=== PATIENT | female | born 1980 | race Caucasian/White ===

== ENCOUNTER 2016-03-24 11:52 | Emergency (ER) | payer OTHER ==
[2016-03-24 12:24] LABS: COLOR ORANGE; PH,URINE 6.5 (5.0-7.5)
[2016-03-24 12:32] LABS: BACTERIA TRACE /hpf (NONE SEEN); MUCUS 2+ /lpf (NONE-1+); WBC,URINE 25-50 /hpf (0-3)
[2016-03-24 12:33] VITALS: BP 133/81; PULSE 86; RESP 16; TEMP 98.1; O2SAT 97
--- NOTE | 2016-03-24 13:06 | UCPHY ---
H & P Time Seen by Provider: 03/24/16 12:56 Patient Type: Established HPI/ROS: This patient presents with a chief complaint of frequency, urgency and dysuria which began 3 days ago. She denies flank pain or fever. She does admit to some lower abdominal cramping which radiates into her back. She does admit to some nausea without vomiting or diarrhea. Her last UTI was 4 months ago. She has been keeping herself well hydrated and then using azo over the counter. Smoking Status: Never smoked Physical Exam: This is a well-developed well-nourished female who is in no acute distress. She is alert, lucid and appropriate. Abdomen: There is mild suprapubic tenderness without guarding or rebound. There is no organomegaly. Back: There is no CVA tenderness. Constitutional: Initial Vital Signs Temperature (C) 36.7 C 03/24/16 12:28 Heart Rate 86 03/24/16 12:28 Respiratory Rate 16 03/24/16 12:28 Blood Pressure 133/81 H 03/24/16 12:28 O2 Sat (%) 97 03/24/16 12:28 O2 Delivery Mode Room Air Allergies/Adverse Reactions: No Known Allergies Allergy (Verified 03/24/16 12:27) Home Medications: Medication Instructions Recorded Effexor 05/10/14 Levothyroxine 05/10/14 Liothyronine Sodium 05/10/14 TOPIRAMATE 04/15/15 Nitrofurantoin Macrobid [Macrobid] 100 mg PO BID #14 cap 03/24/16 Medical Decision Making Differential Diagnosis: I believe that this patient has an uncomplicated UTI and a culture is not necessary. There is nothing to suggest acute pyelonephritis. - Data Points Laboratory Results: 03/24/16 12:20 Urine Color ORANGE Urine Appearance HAZY Urine pH 6.5 (5.0-7.5) Ur Specific [place] 1.020 (1.002-1.030) Urine Protein 3+ H (NEGATIVE) Urine Ketones 1+ H (NEGATIVE) Urine Blood NEGATIVE (NEGATIVE) Urine Nitrate TNP Urine Bilirubin TNP Urine Urobilinogen TNP Ur Leukocyte Esterase TNP Urine RBC 3-5 H /hpf (0-3) Urine WBC 25-50 H /hpf (0-3) Ur Epithelial Cells 1+ /lpf (NONE-1+) Urine Bacteria TRACE H /hpf (NONE SEEN) Urine Mucus 2+ H /lpf (NONE-1+) Urine Glucose 1+ H (NEGATIVE) Departure - Departure Disposition: Home, Routine, Self-Care Clinical Impression: Urinary tract infection Qualifiers: Urinary tract infection type: acute cystitis Hematuria presence: without hematuria Qualifier Code: (N30.00) Acute cystitis without hematuria Condition: Good Instructions: Urinary Tract Infection in Women (ED) Additional Instructions: If your symptoms have not resolved in 2 days you should be re-evaluated. Keep herself well hydrated and continue to use cranberry juice and the azo. Cause for concern would be vomiting, fever or flank pain. Referrals: Rosemarie Garzon MD [Primary Care Provider] - As per Instructions Prescriptions: Nitrofurantoin Macrobid [Macrobid] 100 mg PO BID #14 cap - PQRS PQRS Measurement: Not applicable
== END 2016-03-24 13:18 | disposition home or self-care (01) ==
LOC: CED 11:52
DX: N30.00 Acute cystitis without hematuria (principal)
CPT/HCPCS: 81003-PO; 81015-PO; 99214-PO; G0463-PO

== ENCOUNTER 2016-07-27 12:02 | Emergency (ER) | payer OTHER ==
[2016-07-27 12:19] VITALS: RESP 18; TEMP 98
[2016-07-27] MEDS ORDERED: NS 1,000 ML IV ONE (12:26)
[2016-07-27] MEDS ORDERED: HYDROmorphONE/DILAUDID 1 MG/ML SYR IVP ONE (12:26)
[2016-07-27] MEDS ORDERED: ONDANSETRON 4 MG/2 ML VIAL IVP ONE (12:26)
--- NOTE | 2016-07-27 12:29 | EDPHY ---
H & P Stated Complaint: RLQ pain x 2 wks inc. over last few days Time Seen by Provider: 07/27/16 12:22 HPI/ROS: CHIEF COMPLAINT: Right lower quadrant pain HISTORY OF PRESENT ILLNESS: Patient is a 35-year-old female who comes from the load tallier office for right lower quadrant pain and tenderness. The patient states that her pain began about a week ago just to the right of her umbilicus. It has been mild and seem to be worse after eating. Will last 2 days however it has become more severe and was tender when palpated by the GI practitioner. She also has pain with heel tap. She has not had a fever. She had a mild sore throat yesterday but improved. She states that she has had ovarian cysts in the past that felt similar. She has not had any vaginal bleeding or discharge. No urinary symptoms. She does have mild nausea but no vomiting. REVIEW OF SYSTEMS: Constitutional: denies: chills, fever, recent illness, recent injury EENTM: denies: blurred vision, double vision, nose congestion Respiratory: denies: cough, shortness of breath Cardiac: denies: chest pain, irregular heart rate, lightheadedness, palpitations Gastrointestinal/Abdominal: See HPI denies: diarrhea, vomiting, blood streaked stools Genitourinary: denies: dysuria, frequency, hematuria, pain Musculoskeletal: denies: joint pain, muscle pain Skin: denies: lesions, rash, jaundice, bruising Neurological: denies: headache, numbness, paresthesia, tingling, dizziness, weakness Hematologic/Lymphatic: denies: blood clots, easy bleeding, easy bruising Immunologic/allergic: denies: HIV/AIDS, transplant EXAM: GENERAL: Well-appearing, well-nourished and in no acute distress. HEAD: Atraumatic, normocephalic. EYES: Pupils equal round and reactive to light, extraocular movements intact, sclera anicteric, conjunctiva are normal. ENT: TMs normal, nares patent, oropharynx clear without exudates. Moist mucous membranes. NECK: Normal range of motion, supple without lymphadenopathy or JVD. LUNGS: Breath sounds clear to auscultation bilaterally and equal. No wheezes rales or rhonchi. HEART: Regular rate and rhythm without murmurs, rubs or gallops. ABDOMEN: White lower quadrant tenderness to palpation, pain with heel tap. BACK: No CVA tenderness, no spinal tenderness, step-offs or deformities EXTREMITIES: Normal range of motion, no pitting or edema. No clubbing or cyanosis. NEUROLOGICAL: Cranial nerves II through XII grossly intact. Normal speech, normal gait. 5/5 strength, normal movement in all extremities, normal sensation PSYCH: Normal mood, normal affect. SKIN: Warm, dry, normal turgor, no visible rashes or lesions. Source: Patient Exam Limitations: No limitations - Personal History LMP (Females 10-55): IUD In Place Current Tetanus Diphtheria and Acellular Pertussis (TDAP): Yes Tetanus Vaccine Date: 2010 - Medical/Surgical History Hx Asthma: Yes Hx Chronic Respiratory Disease: No Hx Diabetes: No Hx Cardiac Disease: No Hx Renal Disease: No Hx Cirrhosis: No Hx Alcoholism: No Hx HIV/AIDS: No Hx Splenectomy or Spleen Trauma: No Other PMH: MEd hx-thyroid,anxiety,migraine. Surg-c-sect,laproscopy,inguinal lymph removed, wisdom teeth - Family History Significant Family History: No pertinent family hx - Social History Smoking Status: Never smoked Alcohol Use: Sober Drug Use: None Constitutional: Initial Vital Signs Temperature (C) 36.6 C 07/27/16 12:17 Heart Rate 85 07/27/16 12:17 Respiratory Rate 18 07/27/16 12:17 Blood Pressure 137/90 H 07/27/16 12:17 O2 Sat (%) 97 07/27/16 12:17 O2 Delivery Mode Room Air Allergies/Adverse Reactions: No Known Allergies Allergy (Verified 03/24/16 12:27) Home Medications: Medication Instructions Recorded Levothyroxine 05/10/14 Liothyronine Sodium 05/10/14 TOPIRAMATE 04/15/15 Nitrofurantoin Macrobid [Macrobid] 100 mg PO BID #14 cap 03/24/16 Hydrocodone/APAP 5/325 [[employer] 1 - 2 tab PO Q4H PRN #10 tab 07/27/16 5/325 (RX)] Ondansetron Odt [Zofran Odt 4 mg 4 mg PO Q4 PRN #20 tab 07/27/16 (RX)] Medical Decision Making - Diagnostics Imaging: Discussed imaging studies w/ job honer Radiologist ED Course/Re-evaluation: 2:00 p.m. we discussed the CT and lab results. patient is happy with this. She declines further workup or testing at this time. I will prescribe her some Vicodin for pain. I will recommend that she follow up with surgery for gallstones. Differential Diagnosis: Partial list of the Differential diagnosis considered include but were not limited to; appendicitis, biliary disease and although unlikely based on the history and physical exam, I also considered kidney stone, urinary tract infection, ovarian cyst, . I discussed these differential diagnoses and the plan with the patient as well as the usual and expected course. The patient understands that the diagnosis is provisional and that in medicine we are not always correct and that further workup is often warranted. Usual and customary warnings were given. All of the patient's questions were answered. The patient was instructed to return to the emergency department should the symptoms at all worsen or return, otherwise to followup with the physician as we discussed. - Data Points Laboratory Results: Laboratory Results 07/27/16 12:20 07/27/16 12:20 Medications Given: Discontinued Medications Hydromorphone HCl (Dilaudid) 1 mg IVP EDNOW ONE Stop: 07/27/16 12:27 Last Admin: 07/27/16 12:37 Dose: 1 mg Sodium Chloride (Ns) 1,000 mls @ 0 mls/hr IV ONCE ONE PRN Reason: Wide Open Stop: 07/27/16 12:27 Last Admin: 07/27/16 12:30 Dose: 1,000 mls Ondansetron HCl (Zofran) 4 mg IVP EDNOW ONE Stop: 07/27/16 12:27 Last Admin: 07/27/16 12:35 Dose: 4 mg Departure - Departure Disposition: Home, Routine, Self-Care Clinical Impression: Cholelithiasis Qualifiers: Cholelithiasis location: gallbladder Cholecystitis presence: without cholecystitis Biliary obstruction: without biliary obstruction Qualified Code(s) : K80.20 - Calculus of gallbladder without cholecystitis without obstruction Condition: Fair Instructions: Biliary Colic (ED) Referrals: Mikal Tompkins DO [Primary Care Provider] - As per Instructions Ambrose Tapia MD [Medical Doctor] - As per Instructions Prescriptions: Hydrocodone/APAP 5/325 [[employer] 5/325 (RX)] 1 - 2 tab PO Q4H PRN #10 tab PRN Reason: Pain, Moderate Ondansetron Odt [Zofran Odt 4 mg (RX)] 4 mg PO Q4 PRN #20 tab PRN Reason: Nausea & Vomiting
[2016-07-27 12:32] LABS: % IMMATURE GRANULYOCYTES 0.3 % (0.0-1.1); ABSOLUTE IMMATURE GRANULOCYTES 0.03 10^3/uL (0.00-0.10); ADD DIFF? NO; ADD MORPH? NO; ADD SCAN? NO; ATYPICAL LYMPHOCYTE FLAG 0 (0-99); FRAGMENT RBC FLAG 0 (0-99); HEMATOCRIT 46.1 % (38.0-47.0); HEMOGLOBIN 15.9 g/dL (12.6-16.3); LEFT SHIFT FLG 0 (0-99); LIPEMIA HEMOLYSIS FLAG 90 (0-99); MEAN CELL HEMOGLOBIN 29.3 pg (27.9-34.1); MEAN CELL HEMOGLOBIN CONCENTR. 34.5 g/dL (32.4-36.7); MEAN CELL VOLUME 84.9 fL (81.5-99.8); MEAN PLATELET VOLUME 10.1 fL (8.7-11.7); PLATELET CLUMPS FLAG 20 (0-99); PLATELET COUNT 303 10^3/uL (150-400); RED BLOOD CELL COUNT 5.43 10^6/uL (4.18-5.33); RED CELL DISTRIBUTION WIDTH 13.6 % (11.5-15.2)
[2016-07-27] MEDS ORDERED: IOPAMIDOL (ISOVUE-300) 100 ML BTL IV ONE (12:34)
[2016-07-27 12:35] LABS: COLOR YELLOW; LEUKOCYTE ESTERASE,URINE NEGATIVE (NEGATIVE); NITRITE,URINE NEGATIVE (NEGATIVE)
[2016-07-27 12:53] LABS: ALANINE AMINOTRANSFERASE 35 IU/L (9-52); ALBUMIN 3.6 g/dL (3.5-5.0); ALKALINE PHOSPHATASE 79 IU/L (38-126); ANION GAP 12 mEq/L (8-16); ASPARTATE AMINOTRANSFERASE 21 IU/L (14-46); BILIRUBIN,TOTAL 0.5 mg/dL (0.1-1.4); BILIRUBIN-CONJUGATED 0.4 mg/dL (0.0-0.5); BILIRUBIN-UNCONJUGATED 0.1 mg/dL (0.0-1.1); CALCIUM 9.1 mg/dL (8.5-10.4); CARBON DIOXIDE 21 mEq/l (22-31); CHLORIDE 107 mEq/L (97-110); CREATININE 0.7 mg/dL (0.6-1.0); GLOMERULAR FILTRATION RATE > 60; GLUCOSE 95 mg/dL (70-100); SODIUM 140 mEq/L (134-144); TOTAL PROTEIN 7.1 g/dL (6.3-8.2)
[2016-07-27 13:06] LABS: RBC,URINE 0-1 /hpf (0-3); WBC,URINE 0-1 /hpf (0-3)
[2016-07-27 19:26] VITALS: BP 99/64; PULSE 92; O2SAT 98
== END 2016-07-27 14:15 | disposition home or self-care (01) ==
LOC: CED 12:02
DX: K80.20 Calculus of gallbladder without cholecystitis without obstruction (principal); J45.909 Unspecified asthma, uncomplicated
CPT/HCPCS: 74177-PO; 80053-PO; 81003-PO; 81015-PO; 82248-PO; 83690-PO; 84703-PO; 85025-PO; 96374; J1170; J2405; Q9967

== ENCOUNTER 2016-08-07 15:58 | Observation (INO) | payer OTHER ==
--- NOTE | 2016-08-07 16:42 | EDPHY ---
H & P Time Seen by Provider: 08/07/16 16:18 HPI/ROS: CHIEF COMPLAINT: Abdominal pain HISTORY OF PRESENT ILLNESS: On and off right upper quadrant abdominal pain for the past 3 weeks. Worse today. Had a CT done as an outpatient by her groundman which showed gallstones. Today she has right upper quadrant abdominal pain which is moderate to severe, started as a 5 this morning and then increased. Associated with nausea but no vomiting. A little bit of diarrhea. Radiates to her back. Worse with any oral intake. REVIEW OF SYSTEMS: Eye: no change in vision ENT: no sore throat Cardiac: no chest pain or syncope Pulmonary: no cough or SOB Abdomen: HPI Musculoskeletal: no back pain Skin: no rash Neuro: no headache Constitutional: no fever : no urinary symptoms A comprehensive 10 point review of systems is otherwise negative aside from elements mentioned in the history of present illness. PAST MEDICAL HISTORY: Includes , migraines, thyroid disease, anxiety, wisdom tooth removal. Social history: No alcohol General Appearance: Alert and conversant, cooperative. Eyes: No scleral icterus. ENT, Mouth: Dry mucous membranes. Respiratory: Normal respiratory effort, breath sounds equal, lungs are clear to auscultation. Cardiovascular: Regular rate and rhythm. Gastrointestinal: Right upper quadrant abdominal tenderness. Neurological: Alert and oriented x3. Normally conversant. Face symmetric, normal movement and sensation in all extremities. Skin: Warm and dry, no rashes. Musculoskeletal: No peripheral edema and no joint swelling. Psychiatric: Not agitated. Emergency Department course/MDM: Moderate to high suspicion for gallstone disease. Family history positive for gallstones in her mother. Fentanyl 100 mcg IV, Zofran 4 mg IV, right upper quadrant ultrasound and labs to include liver function tests lipase and test. Results discussed at 6:00 p.m., plan for surgical consultation. Smoking Status: Never smoked Constitutional: Initial Vital Signs Temperature (C) 36.9 C 08/07/16 16:11 Heart Rate 86 08/07/16 16:11 Respiratory Rate 16 08/07/16 16:11 Blood Pressure 111/70 08/07/16 16:11 O2 Sat (%) 95 08/07/16 16:11 O2 Delivery Mode Room Air Allergies/Adverse Reactions: No Known Allergies Allergy (Verified 08/07/16 16:15) Home Medications: Medication Instructions Recorded Levothyroxine 05/10/14 Liothyronine Sodium 05/10/14 TOPIRAMATE 04/15/15 Effexor 08/07/16 Xifaxan 08/07/16 Medical Decision Making - Diagnostics Imaging Results: Imaging Impressions Abdomen Ultrasound 08/07/16 16:54 Impression: 1. Cholelithiasis with a 15 mm mobile gallstone. 2. No gallbladder wall thickening or pericholecystic fluid. 3. No biliary ductal dilation. Findings and recommendations discussed with Emergency Department physician, KENDRICK FERNANDES at 17:49 hour, 08/07/2016. Final report concurs with initial preliminary interpretation. Ultrasound per Dr. Veto Amor at 5:50 p.m. shows 15 mm mobile gallstone without evidence of cholecystitis Differential Diagnosis: Differential considered including but not limited to cholecystitis, pancreatitis , biliary colic, hepatitis. Consult/Admit Bed Type: [place] [id number] - Data Points Laboratory Results: Laboratory Results 08/07/16 17:00 08/07/16 17:00 08/07/16 08/07/16 08/07/16 17:00 17:00 17:00 WBC 8.99 10^3/uL 10^3/uL (3.80-9.50) RBC 5.33 10^6/uL 10^6/uL (4.18-5.33) Hgb 15.6 g/dL g/dL (12.6-16.3) Hct 45.7 % % (38.0-47.0) MCV 85.7 fL fL (81.5-99.8) MCH 29.3 pg pg (27.9-34.1) MCHC 34.1 g/dL g/dL (32.4-36.7) RDW 13.2 % % (11.5-15.2) Plt Count 318 10^3/uL 10^3/uL (150-400) MPV 9.7 fL fL (8.7-11.7) Neut % (Auto) 63.5 % % (39.3-74.2) Lymph % (Auto) 29.4 % % (15.0-45.0) [place] % (Auto) 3.9 % L % (4.5-13.0) Eos % (Auto) 2.1 % % (0.6-7.6) Baso % (Auto) 0.8 % % (0.3-1.7) Nucleat RBC Rel Count 0.0 % % (0.0-0.2) Absolute Neuts (auto) 5.71 10^3/uL 10^3/uL (1.70-6.50) Absolute Lymphs (auto) 2.64 10^3/uL 10^3/uL (1.00-3.00) Absolute Monos (auto) 0.35 10^3/uL 10^3/uL (0.30-0.80) Absolute Eos (auto) 0.19 10^3/uL 10^3/uL (0.03-0.40) Absolute Basos (auto) 0.07 10^3/uL 10^3/uL (0.02-0.10) Absolute Nucleated RBC 0.00 10^3/uL 10^3/uL (0-0.01) Immature Gran % 0.3 % % (0.0-1.1) Immature Gran # 0.03 10^3/uL 10^3/uL (0.00-0.10) Sodium 142 mEq/L mEq/L (134-144) Potassium 4.0 mEq/L mEq/L (3.5-5.2) Chloride 110 mEq/L mEq/L (97-110) Carbon Dioxide 22 mEq/l mEq/l (22-31) Anion Gap 10 mEq/L mEq/L (8-16) BUN 12 mg/dL mg/dL (7-23) Creatinine 0.9 mg/dL mg/dL (0.6-1.0) Estimated GFR > 60 Glucose 84 mg/dL mg/dL (70-100) Calcium 9.9 mg/dL mg/dL (8.5-10.4) Total Bilirubin 0.5 mg/dL mg/dL (0.1-1.4) Conjugated Bilirubin 0.3 mg/dL mg/dL (0.0-0.5) Unconjugated Bilirubin 0.2 mg/dL mg/dL (0.0-1.1) AST 29 IU/L IU/L (14-46) ALT 57 IU/L H IU/L (9-52) Alkaline Phosphatase 93 IU/L IU/L (38-126) Total Protein 7.5 g/dL g/dL (6.3-8.2) Albumin 4.1 g/dL g/dL (3.5-5.0) Lipase 81.0 IU/L IU/L (23-300) Beta HCG, Qual NEGATIVE Departure - Departure Disposition: [facility] Inpatient Acute Clinical Impression: Biliary colic Condition: Good Referrals: Mikal Tompkins DO [Primary Care Provider] - As per Instructions
[2016-08-07] MEDS ORDERED: ONDANSETRON 4 MG/2 ML VIAL IVP ONE (16:54)
[2016-08-07] MEDS ORDERED: fentaNYL 100 MCG/2 ML INJ IVP ONE (16:54)
[2016-08-07] MEDS ORDERED: NS 1,000 ML IV ONE ×2 (16:54)
[2016-08-07 17:08] LABS: % IMMATURE GRANULYOCYTES 0.3 % (0.0-1.1); ABSOLUTE IMMATURE GRANULOCYTES 0.03 10^3/uL (0.00-0.10); ADD DIFF? NO; ADD MORPH? NO; ADD SCAN? NO; ATYPICAL LYMPHOCYTE FLAG 10 (0-99); FRAGMENT RBC FLAG 0 (0-99); HEMATOCRIT 45.7 % (38.0-47.0); HEMOGLOBIN 15.6 g/dL (12.6-16.3); LEFT SHIFT FLG 0 (0-99); LIPEMIA HEMOLYSIS FLAG 90 (0-99); MEAN CELL HEMOGLOBIN 29.3 pg (27.9-34.1); MEAN CELL HEMOGLOBIN CONCENTR. 34.1 g/dL (32.4-36.7); MEAN CELL VOLUME 85.7 fL (81.5-99.8); MEAN PLATELET VOLUME 9.7 fL (8.7-11.7); PLATELET CLUMPS FLAG 0 (0-99); PLATELET COUNT 318 10^3/uL (150-400); RED BLOOD CELL COUNT 5.33 10^6/uL (4.18-5.33); RED CELL DISTRIBUTION WIDTH 13.2 % (11.5-15.2)
[2016-08-07 17:28] LABS: ALANINE AMINOTRANSFERASE 57 IU/L (9-52); ALBUMIN 4.1 g/dL (3.5-5.0); ALKALINE PHOSPHATASE 93 IU/L (38-126); ANION GAP 10 mEq/L (8-16); ASPARTATE AMINOTRANSFERASE 29 IU/L (14-46); BILIRUBIN,TOTAL 0.5 mg/dL (0.1-1.4); BILIRUBIN-CONJUGATED 0.3 mg/dL (0.0-0.5); BILIRUBIN-UNCONJUGATED 0.2 mg/dL (0.0-1.1); CALCIUM 9.9 mg/dL (8.5-10.4); CARBON DIOXIDE 22 mEq/l (22-31); CHLORIDE 110 mEq/L (97-110); CREATININE 0.9 mg/dL (0.6-1.0); GLOMERULAR FILTRATION RATE > 60; GLUCOSE 84 mg/dL (70-100); SODIUM 142 mEq/L (134-144); TOTAL PROTEIN 7.5 g/dL (6.3-8.2)
[2016-08-07] MEDS ORDERED: ONDANSETRON 4 MG/2 ML VIAL IVP PRN (19:29)
[2016-08-07] MEDS ORDERED: LR 1,000 ML IV SCH (19:30)
[2016-08-07] MEDS ORDERED: BUPIVACAINE/EPI 0.5% 30 ML SDV ONE (19:46)
--- NOTE | 2016-08-07 20:29 | GHP ---
[f rep st] HISTORY AND PHYSICAL DATE OF ADMISSION: 08/07/2016 CHIEF COMPLAINT: Right upper quadrant pain. PRESENT ILLNESS: A 35-year-old female with unrelenting right upper quadrant pain, worse today. She has been suffering for 3 weeks, but today it became intolerable. She states she was lying on the f kari, incapable of eating. Seen in the emergency department. An ultrasound was repeated, even thou gh a CT scan the other day showed gallstones. Today's ultrasound shows a 15 mm mobile gallstone. N o wall thickening or pericholecystic fluid. Nothing to suggest acute cholecystitis despite her pain . PAST MEDICAL HISTORY/ALLERGIES: None. CURRENT MEDICATIONS: p.o. t.i.d., Topamax, Effexor, levothyroxine. PREVIOUS SURGERIES: , inguinal node biopsy, oral surgery, TAB. SOCIAL HISTORY: Nonsmoker. No alcohol use. She is an environmental health sanitarian. REVIEW OF SYSTEMS: Denies asthma, heart trouble, diabetes, epilepsy, rheumatic fever. She does suf ana from irritable bowel syndrome for which she consults with Jac Villarreal. PHYSICAL EXAM: HEENT: No scleral icterus. Pharynx clear. NECK: Supple without adenopathy. LUNG S: Clear. HEART: Normal S1, S2 without murmur. ABDOMEN: Soft, tender in the right upper quadran t. Positive Mcqueen sign. EXTREMITIES/NEUROLOGIC: Unremarkable. LABORATORY EXAMS: Include a white blood count of 9000, platelet count 318. Bilirubin 0.5. Lipase 81. test negative. ASSESSMENT AND PLAN: Biliary colic. The pain seems somewhat out of proportion to the ultrasound fi ndings; however, this is not a perfect correlate. As the patient feels she cannot go home or eat, w e will admit her. Give her IV hydration and do a cholecystectomy either tonight or tomorrow. Risks and benefits and the nature of the procedure were explained to the patient and her friend, and all questions answered. /[id number]/MODL
[2016-08-07] MEDS ORDERED: PROPOFOL 200 MG/20 ML VIAL ONE ×3 (21:38→23:18)
[2016-08-07] MEDS ORDERED: fentaNYL 100 MCG/2 ML INJ ONE ×4 (21:39→23:53)
[2016-08-07] MEDS ORDERED: ROCURONIUM 50 MG/5 ML VIAL ONE (21:40)
[2016-08-07] MEDS ORDERED: DEXAMETHASONE 4 MG/ML VIAL ONE (21:41)
[2016-08-07] MEDS ORDERED: MIDAZOLAM 2 MG/2 ML VIAL ONE (22:31)
[2016-08-07] MEDS ORDERED: ONDANSETRON 4 MG/2 ML VIAL ONE (23:17)
[2016-08-07] MEDS ORDERED: NEOSTIGMINE METHYLSULFATE 5 MG/5 ML SYR ONE (23:30)
[2016-08-07] MEDS ORDERED: GLYCOPYRROLATE 0.2 MG/1 ML VIAL ONE ×2 (23:30→23:33)
[2016-08-07] MEDS ORDERED: HYDROCODONE/APAP 5/325 TAB PO PRN (23:52)
--- NOTE | 2016-08-07 23:54 | POSTOPPROG ---
Post Op Note Date of Operation: 08/07/16 Surgeon: Oli La Pre-op Diagnosis: gallsotnes Post-op Diagnosis: same Indication: same Procedure: lap choly, lysis of adhesions Findings: gallstones, r ovary stuck to abd wall Inf/Abcess present in the surg proc area at time of surgery?: No EBL: Minimal
[2016-08-08] MEDS ORDERED: fentaNYL 100 MCG/2 ML INJ ONE ×2 (00:02→00:33)
--- NOTE | 2016-08-08 00:14 | GOP ---
[f rep st] OPERATIVE REPORT DATE OF OPERATION: SURGEON: Oli aL MD HEAT TREATING FURNACE TENDER: Thuan Thacker, CSFA, LSA. PREOPERATIVE DIAGNOSIS: Cholelithiasis. POSTOPERATIVE DIAGNOSIS: 1. Cholelithiasis. 2. Adhesion of right ovary to abdominal wall. PROCEDURE PERFORMED: FINDINGS: INDICATIONS: Patient with right upper quadrant pain. She also has a history of right lower quadran t pain. DESCRIPTION OF PROCEDURE: The abdomen was scrubbed with ChloraPrep, draped in the usual sterile fas hion. Infraumbilical incision made. Veress needle used to achieve a pneumoperitoneum. A 12 mm por t was placed, two 5 mm ports in the upper abdomen. The viscera were examined. The uterus and ovary stuck to the abdominal wall, particularly right ovary plastered in the old lower abdominal incision . The gallbladder was pushed cephalad. The cystic duct and artery identified, clipped, and divided . Then the gallbladder was removed from below with electrocautery, detached from the liver, placed in an Endopouch. There was no bleeding. Attention was then paid to the ovary stuck to the abdomina l incision. This was lysed with cautery until the ovary was completely free. Some uterine adhesion s to the incision were not lysed. The gallbladder was extracted in an Endopouch. Then the fascial defect at the umbilicus was closed with 0 Vicryl, skin with 4-0 Monocryl and Dermabond. Patient lilly erated the procedure well. OPERATIONS: 1. Laparoscopic cholecystectomy. 2. Lysis of adhesions of the ovary. /[id number]/MODL
[2016-08-08] MEDS ORDERED: ONDANSETRON 4 MG/2 ML VIAL ONE (00:39)
[2016-08-08] MEDS ORDERED: PROMETHAZINE HCL 25 MG/ML INJ IVP PRN (01:22)
[2016-08-08 02:01] VITALS: RESP 16
[2016-08-08 07:34] VITALS: BP 105/67; PULSE 79; TEMP 97.8; O2SAT 99
--- NOTE | 2016-08-08 12:12 | GDS ---
[f rep st] DISCHARGE SUMMARY PRESENT ILLNESS: Patient was admitted with acute cholecystitis. She underwent laparoscopic cholecys tectomy, lysis of adhesions from her ovary to the abdominal wall. Uneventful recovery. At the time of discharge, she is tolerating a diet. FINAL DIAGNOSES: 1. Cholelithiasis. 2. Cholecystitis. 3. Abdominal wall adhesions. DISPOSITION: Home. DISCHARGE INSTRUCTIONS: Follow up with Dr. La in a week. /[id number]/MODL
== END 2016-08-08 12:00 | disposition home or self-care (01) ==
LOC: F1N 20:17
PROVIDERS: ADMIT Surgery; ATTEND Surgery
PROC: 0FT44ZZ Resection of Gallbladder, Percutaneous Endoscopic Approach (ICD-10-PCS; principal; 2016-08-07 22:39)
PROC: 0UN04ZZ Release Right Ovary, Percutaneous Endoscopic Approach (ICD-10-PCS; principal; 2016-08-07 22:39)
DX: K80.10 Calculus of gallbladder with chronic cholecystitis without obstruction (principal); N73.6 Female pelvic peritoneal adhesions (postinfective)
CPT/HCPCS: 47562; 58660; 76705; G0378; 96374; J1100; J2250; J2405; J2550; J2704; J2710; J3010

== ENCOUNTER 2016-08-08 23:34 | Emergency (ER) | payer OTHER ==
[2016-08-08] MEDS ORDERED: ONDANSETRON 4 MG/2 ML VIAL IVP ONE (23:47)
[2016-08-08] MEDS ORDERED: NS 1,000 ML IV ONE (23:47)
[2016-08-08] MEDS ORDERED: HYDROmorphONE/DILAUDID 1 MG/ML SYR IVP ONE (23:47)
--- NOTE | 2016-08-08 23:47 | EDPHY ---
H & P Stated Complaint: gallbladder out yesterday cough tonite intense pain HPI/ROS: HPI CHIEF COMPLAINT: Right upper quadrant abdominal pain status post coughing HISTORY OF PRESENT ILLNESS: This patient very pleasant 35-year-old female she does have significant past medical history for asthma, and recent cholecystectomy yesterday laparoscopic by Dr. Stanford. Patient states that she has been doing well however she did have a recent upper respiratory tract infection that she is getting over and has been coughing for the past week. She states that around 1030 this evening she developed a coughing spell, and developed severe right upper quadrant abdominal pain at her laparoscopic port site after a coughing spell. States the pain is extreme 10/10 right upper quadrant. Does not radiate anywhere. She denies chest pain or shortness of breath. Past Medical History: Asthma, recent upper respiratory tract infection, biliary colic Past Surgical History: Recent gallbladder removal Social History: Denies daily use of drugs alcohol tobacco products Family History: Noncontributory ROS REVIEW OF SYSTEMS: A comprehensive 10 point review of systems is otherwise negative aside from elements mentioned in the history of present illness. Exam Constitutional triage nursing summary reviewed, vital signs reviewed, awake/ alert. Eyes normal conjunctivae and sclera, EOMI, PERRLA. HENT normal inspection, atraumatic, moist mucus membranes, no epistaxis, neck supple/ no meningismus, no raccoon eyes. Respiratory clear to auscultation bilaterally, normal breath sounds, no respiratory distress, no wheezing. Cardiovascular rate normal, regular rhythm, no murmur, no edema, distal pulses normal. Gastrointestinal tender palpation right upper quadrant, laparoscopic sites appear clean, dry, intact , no rebound, no guarding, normal bowel sounds, no distension, no pulsatile mass. Genitourinary no CVA tenderness. Musculoskeletal no midline vertebral tenderness, full range of motion, no calf swelling, no tenderness of extremities, no meningismus, good pulses, neurovascularly intact. Skin pink, warm, & dry, no rash, skin atraumatic. Neurologic awake, alert and oriented x 3, AAOx3, moves all 4 extremities equally, motor intact, sensory intact, CN II-XII intact, normal cerebellar, normal vision, normal speech. Psychiatric normal mood/affect. Heme/Lymph/Immune no lymphadenopathy. Differential Diagnosis: Includes but is not limited to in a particular order, complication from recent gallbladder surgery, biliary leak,, seroma, biloma, abdominal wall pain from coughing with recent laparoscopic site, hernia, dehiscence of laparoscopic site Medical Decision Making: Plan for this patient IV establishment, IV fluid bolus , IV Dilaudid for acute pain control. Check blood work. CBC and CMP lipase. Due to the amount of pain the patient is having on exam of her right upper quadrant will proceed with CT abdomen pelvis with IV contrast to evaluate for hernia, dehiscence of wound, or acute right upper quadrant pathology after gallbladder removal. Re-evaluation: CT scan of the abdomen pelvis with IV contrast for right upper quadrant pain status post cholecystectomy. The results of the study are trace free fluid in the right upper quadrant, there is intra-abdominal free air to be expected after laparoscopic gallbladder, right lower lobe atelectasis, otherwise unremarkable CT scan. The study was read by Dr. Zepeda. I viewed the images myself on the PACS system. [id number]: Re-examination at this time patient is resting comfortably abdomen is soft minimal tenderness around the laparoscopic site. She does tell me she feels much better after IV Dilaudid and IV fluids. Her CT scan and blood work have been reviewed show nothing acute. She does feel comfortable going home. I do recommend she takes a cough suppressant to help suppress her cough given that she has fracture laparoscopic sites and will be painful she coughs. I also recommend she use counter pressure 1 going to cough. Heating pad. She understands return to the emergency room if she develops any worsening symptoms includes worsening abdominal pain, fever, vomiting questions or concerns about her laparoscopic site. Also recommend she follows up with her surgeon. Source: Patient - Personal History LMP (Females 10-55): 8-14 Days Ago Current Tetanus/Diphtheria Vaccine: Yes Current Tetanus Diphtheria and Acellular Pertussis (TDAP): Yes Tetanus Vaccine Date: 2010 - Medical/Surgical History Hx Asthma: Yes Hx Chronic Respiratory Disease: No Hx Diabetes: No Hx Cardiac Disease: No Hx Renal Disease: No Hx Cirrhosis: No Hx Alcoholism: No Hx HIV/AIDS: No Hx Splenectomy or Spleen Trauma: No Other PMH: MEd hx-thyroid,anxiety,migraine. Surg-c-sect,laproscopy,inguinal lymph removed, wisdom teeth, GALL STONES. thang 08/07 - Social History Smoking Status: Never smoked Constitutional: Initial Vital Signs Temperature (C) 36.6 C 08/08/16 23:37 Heart Rate 96 08/08/16 23:37 Respiratory Rate 18 08/08/16 23:37 Blood Pressure 113/83 H 08/08/16 23:37 O2 Sat (%) 96 08/08/16 23:37 O2 Delivery Mode Room Air Allergies/Adverse Reactions: No Known Allergies Allergy (Verified 08/07/16 16:15) Home Medications: Medication Instructions Recorded Albuterol [Ventolin Hfa Inhaler] 2 puffs IH Q4 PRN 08/07/16 Ibuprofen [Advil] 600 mg PO DAILY PRN 08/07/16 Levothyroxine [Synthroid 100 mcg 100 mcg PO DAILY06 08/07/16 (*)] Liothyronine Sodium [Cytomel 5 mcg 5 mcg PO DAILY 08/07/16 (*)] Rifaximin [Xifaxan] 550 mg PO TID 08/07/16 Rizatriptan Benzoate [Maxalt 10mg] 10 mg PO ONCE PRN 08/07/16 Topiramate [TOPIRAMATE] 50 mg PO DAILY 08/07/16 Venlafaxine Xr [Effexor Xr] 150 mg PO DAILY 08/07/16 Medical Decision Making - Data Points Laboratory Results: Laboratory Results 08/08/16 23:45 08/08/16 23:45 08/08/16 08/08/16 08/08/16 23:45 23:45 23:45 WBC RBC Hgb Hct MCV MCH MCHC RDW Plt Count MPV Neut % (Auto) Lymph % (Auto) Garvin % (Auto) Eos % (Auto) Baso % (Auto) Nucleat RBC Rel Count Absolute Neuts (auto) Absolute Lymphs (auto) Absolute Monos (auto) Absolute Eos (auto) Absolute Basos (auto) Absolute Nucleated RBC Immature Gran % Immature Gran # PT 12.4 SEC SEC (12.0-15.0) INR 0.93 (0.83-1.16) APTT 26.9 SEC SEC (23.0-38.0) Sodium 144 mEq/L mEq/L (134-144) Potassium 3.6 mEq/L mEq/L (3.5-5.2) Chloride 112 mEq/L H mEq/L (97-110) Carbon Dioxide 21 mEq/l L mEq/l (22-31) Anion Gap 11 mEq/L mEq/L (8-16) BUN 9 mg/dL mg/dL (7-23) Creatinine 0.8 mg/dL mg/dL (0.6-1.0) Estimated GFR > 60 Glucose 97 mg/dL mg/dL (70-100) Calcium 9.2 mg/dL mg/dL (8.5-10.4) Total Bilirubin 0.4 mg/dL mg/dL (0.1-1.4) AST 73 IU/L H IU/L (14-46) ALT 83 IU/L H IU/L (9-52) Alkaline Phosphatase 87 IU/L IU/L (38-126) Total Protein 6.7 g/dL g/dL (6.3-8.2) Albumin 3.8 g/dL g/dL (3.5-5.0) Lipase 265.0 IU/L IU/L (23-300) Beta HCG, Qual NEGATIVE 08/08/16 23:45 WBC 12.53 10^3/uL H 10^3/uL (3.80-9.50) RBC 5.06 10^6/uL 10^6/uL (4.18-5.33) Hgb 14.9 g/dL g/dL (12.6-16.3) Hct 44.1 % % (38.0-47.0) MCV 87.2 fL fL (81.5-99.8) MCH 29.4 pg pg (27.9-34.1) MCHC 33.8 g/dL g/dL (32.4-36.7) RDW 13.5 % % (11.5-15.2) Plt Count 314 10^3/uL 10^3/uL (150-400) MPV 9.9 fL fL (8.7-11.7) Neut % (Auto) 65.9 % % (39.3-74.2) Lymph % (Auto) 27.5 % % (15.0-45.0) Garvin % (Auto) 5.1 % % (4.5-13.0) Eos % (Auto) 1.0 % % (0.6-7.6) Baso % (Auto) 0.2 % L % (0.3-1.7) Nucleat RBC Rel Count 0.0 % % (0.0-0.2) Absolute Neuts (auto) 8.25 10^3/uL H 10^3/uL (1.70-6.50) Absolute Lymphs (auto) 3.44 10^3/uL H 10^3/uL (1.00-3.00) Absolute Monos (auto) 0.64 10^3/uL 10^3/uL (0.30-0.80) Absolute Eos (auto) 0.13 10^3/uL 10^3/uL (0.03-0.40) Absolute Basos (auto) 0.03 10^3/uL 10^3/uL (0.02-0.10) Absolute Nucleated RBC 0.00 10^3/uL 10^3/uL (0-0.01) Immature Gran % 0.3 % % (0.0-1.1) Immature Gran # 0.04 10^3/uL 10^3/uL (0.00-0.10) PT INR APTT Sodium Potassium Chloride Carbon Dioxide Anion Gap BUN Creatinine Estimated GFR Glucose Calcium Total Bilirubin AST ALT Alkaline Phosphatase Total Protein Albumin Lipase Beta HCG, Qual Medications Given: Discontinued Medications Hydromorphone HCl (Dilaudid) 1 mg IVP EDNOW ONE Stop: 08/08/16 23:48 Last Admin: 08/09/16 00:00 Dose: 1 mg Sodium Chloride (Ns) 1,000 mls @ 0 mls/hr IV ONCE ONE PRN Reason: Wide Open Stop: 08/08/16 23:48 Last Admin: 08/09/16 00:02 Dose: 1,000 mls Ondansetron HCl (Zofran) 4 mg IVP EDNOW ONE Stop: 08/08/16 23:48 Last Admin: 08/09/16 00:00 Dose: 4 mg Departure - Departure Disposition: Home, Routine, Self-Care Clinical Impression: Cough Abdominal pain Qualifiers: Abdominal location: right upper quadrant Qualified Code(s): R10.11 - Right upper quadrant pain Condition: Good Instructions: Abdominal Pain (ED), Acute Abdominal Pain (ED), Acute Cough (ED) Additional Instructions: 1. Return emergency room if develops worsening abdominal pain fever or vomiting. 2. I recommend that you take [id number] cough suppression. Referrals: Mikal Tompkins DO [Primary Care Provider] - As per Instructions Oli La MD [Medical Doctor] - As per Instructions
[2016-08-08] MEDS ORDERED: IOPAMIDOL (ISOVUE-300) 100 ML BTL ONE (23:55)
[2016-08-09 00:08] LABS: % IMMATURE GRANULYOCYTES 0.3 % (0.0-1.1); ABSOLUTE IMMATURE GRANULOCYTES 0.04 10^3/uL (0.00-0.10); ADD DIFF? NO; ADD MORPH? NO; ADD SCAN? NO; ATYPICAL LYMPHOCYTE FLAG 0 (0-99); FRAGMENT RBC FLAG 0 (0-99); HEMATOCRIT 44.1 % (38.0-47.0); HEMOGLOBIN 14.9 g/dL (12.6-16.3); LEFT SHIFT FLG 0 (0-99); LIPEMIA HEMOLYSIS FLAG 90 (0-99); MEAN CELL HEMOGLOBIN 29.4 pg (27.9-34.1); MEAN CELL HEMOGLOBIN CONCENTR. 33.8 g/dL (32.4-36.7); MEAN CELL VOLUME 87.2 fL (81.5-99.8); MEAN PLATELET VOLUME 9.9 fL (8.7-11.7); PLATELET CLUMPS FLAG 0 (0-99); PLATELET COUNT 314 10^3/uL (150-400); RED BLOOD CELL COUNT 5.06 10^6/uL (4.18-5.33); RED CELL DISTRIBUTION WIDTH 13.5 % (11.5-15.2)
[2016-08-09 00:19] LABS: INR 0.93 (0.83-1.16); PROTIME(PATIENT) 12.4 SEC (12.0-15.0)
[2016-08-09 00:20] LABS: APTT 26.9 SEC (23.0-38.0)
[2016-08-09 00:22] VITALS: TEMP 98.2
[2016-08-09 00:22] LABS: ALANINE AMINOTRANSFERASE 83 IU/L (9-52); ALBUMIN 3.8 g/dL (3.5-5.0); ALKALINE PHOSPHATASE 87 IU/L (38-126); ANION GAP 11 mEq/L (8-16); ASPARTATE AMINOTRANSFERASE 73 IU/L (14-46); BILIRUBIN,TOTAL 0.4 mg/dL (0.1-1.4); CALCIUM 9.2 mg/dL (8.5-10.4); CARBON DIOXIDE 21 mEq/l (22-31); CHLORIDE 112 mEq/L (97-110); CREATININE 0.8 mg/dL (0.6-1.0); GLOMERULAR FILTRATION RATE > 60; GLUCOSE 97 mg/dL (70-100); POTASSIUM 3.6 mEq/L (3.5-5.2); SODIUM 144 mEq/L (134-144); TOTAL PROTEIN 6.7 g/dL (6.3-8.2)
[2016-08-09 01:48] VITALS: BP 134/81; PULSE 75; RESP 16; O2SAT 97
== END 2016-08-09 01:48 | disposition home or self-care (01) ==
DX: R10.11 Right upper quadrant pain (principal); R05 Cough; J45.909 Unspecified asthma, uncomplicated
CPT/HCPCS: 96374; J1170; J2405; Q9967

== ENCOUNTER 2017-11-08 21:52 | Emergency (ER) | payer OTHER ==
[2017-11-08] MEDS ORDERED: OXYCODONE/APAP 5/325MG PREPACK#4 BTL TAKEHOME ONE (22:08)
--- NOTE | 2017-11-08 22:08 | EDPHY ---
H & P Stated Complaint: c/o tooth pain since dental work today Time Seen by Provider: 11/08/17 22:00 HPI/ROS: Chief Complaint: Tooth pain HPI: 37-year-old woman who is been having dental work done for the last 3 days. She had a root canal done on Monday. She had worsening pain the following day in his revised it. Today again she had additional work done. Once the anesthetic wore off she had severe pain. She has been taking Advil. She also took 2 [employer] without any relief the pain. She is scheduled to go back to see her dentist tomorrow to have the tooth extracted is but is continuing to have severe pain. No swelling. No fevers or chills. No difficulty swallowing. No nausea or vomiting. ROS: 10 point Review of Systems is negative except as noted in the HPI. Social History: Denies smoking Family History: non-contributory Physical Exam: General: Awake, alert, no distress Mouth: She has got poor dentition. There is a right upper molar with packing of dental cement. There is no erythema. There is tenderness to percussion. No pointing or fluctuance. Uvula is midline. Neck: No lymphadenopathy, supple - Personal History LMP (Females 10-55): 22-28 Days Ago Tetanus Vaccine Date: 2010 - Medical/Surgical History Hx Asthma: Yes Hx Chronic Respiratory Disease: No Hx Diabetes: No Hx Cardiac Disease: No Hx Renal Disease: No Hx Cirrhosis: No Hx Alcoholism: No Hx HIV/AIDS: No Hx Splenectomy or Spleen Trauma: No Other PMH: MEd hx-thyroid,anxiety,migraine. Surg-c-sect,laproscopy,inguinal lymph removed, wisdom teeth, GALL STONES. thang 08/07 - Social History Smoking Status: Never smoked Constitutional: Initial Vital Signs Temperature (C) 36.7 C 11/08/17 21:58 Heart Rate 84 11/08/17 21:58 Respiratory Rate 18 11/08/17 21:58 Blood Pressure 125/84 H 11/08/17 21:58 O2 Sat (%) 99 11/08/17 21:58 O2 Delivery Mode Room Air Allergies/Adverse Reactions: No Known Allergies Allergy (Verified 08/07/16 16:15) Home Medications: Medication Instructions Recorded Clindamycin 11/08/17 Hydrocodone-Acetamin 5-325 mg 11/08/17 Medical Decision Making Procedures: Procedure: Regional anesthesia. A dental block was performed for dental pain. The block was performed with Marcaine with epinephrine. The patient experienced complete pain relief. The procedure was performed by myself. Departure - Departure Disposition: Home, Routine, Self-Care Clinical Impression: Pain, dental Condition: Good Instructions: Toothache (ED), Oxycodone/Acetaminophen (By mouth) Additional Instructions: Follow up with dentist tomorrow as scheduled.
[2017-11-08 22:39] VITALS: BP 134/66
== END 2017-11-08 22:36 | disposition home or self-care (01) ==
LOC: CED 21:52
PROC: 3E0X3BZ Introduction of Anesthetic Agent into Cranial Nerves, Percutaneous Approach (ICD-10-PCS; principal; 2017-11-08)
DX: K08.89 Other specified disorders of teeth and supporting structures (principal); Z98.890 Other specified postprocedural states

== ENCOUNTER → 2018-05-23 | Outpatient (CLI) | payer OTHER | LOC: CIMAGING 08:02 | PROVIDERS: ATTEND Family Medicine | DX: R53.83 Other fatigue (principal); R59.0 Localized enlarged lymph nodes | CPT/HCPCS: 76882-PO ==